=== PATIENT | male | born 1980 | race Caucasian/White ===

== ENCOUNTER 2017-06-14 09:54 | Emergency (ER) | payer MEDICAID ==
[2017-06-14] MEDS: IBUPROFEN 800 MG TAB PO (10:27)
[2017-06-14] MEDS: ACETAMINOPHEN 500 MG TAB PO (10:27)
== END 2017-06-14 11:56 | disposition home or self-care (01) ==
LOC: FTE 09:54
DX: R50.9 Fever, unspecified (principal)
CPT/HCPCS: 87400; 99283